=== PATIENT | male | born 1950 | race Hispanic/Latino ===

== ENCOUNTER → 2020-09-11 | Outpatient (CLI) | payer MEDICARE | END | disposition home or self-care (01) | LOC: RAH 11:00 | PROVIDERS: ATTEND Internal Medicine Gastroenterology | DX: R13.13 Dysphagia, pharyngeal phase (principal); R63.3 Feeding difficulties | CPT/HCPCS: 74230; 92611 ==

== ENCOUNTER → 2020-11-05 | Outpatient (CLI) | payer MEDICARE | END | disposition home or self-care (01) | LOC: RAH 10:23 | PROVIDERS: ATTEND Internal Medicine Gastroenterology | DX: R63.3 Feeding difficulties (principal); R13.12 Dysphagia, oropharyngeal phase | CPT/HCPCS: 74230; 92611 ==

== ENCOUNTER → 2022-10-30 | Outpatient (CLI) | payer MEDICARE ==
[2022-10-30 16:09] LABS: BASOPHILS % (AUTO) 0.4 % (0.0-5.0); EOSINOPHILS % (AUTO) 2.5 % (0.0-8.0); LYMPHOCYTES % (AUTO) 45.4 % (21.0-51.0); MEAN CORPUSCULAR HEMOGLOBIN 34.5 pg (27.0-33.0); MEAN CORPUSCULAR HGB CONC 34.1 g/dL (32.0-36.0); MONOCYTES % (AUTO) 14.5 % (3.0-13.0); NEUTROPHILS % (AUTO) 37.1 % (40.0-77.0); PLATELET COUNT (AUTO) 99 K/uL (130-400); RED BLOOD CELL COUNT(AUTO) 3.86 MIL/uL (4.50-6.20); RED CELL DISTRIBUTION WIDTH 12.2 % (11.0-15.5); WHITE BLOOD COUNT (AUTO) 6.7 K/uL (4.8-10.8)
[2022-10-30 16:26] LABS: INR 1.07 (0.85-1.15); PROTHROMBIN TIME 11.6 SEC (9.6-11.6)
[2022-10-30 16:27] LABS: PARTIAL THROMBOPLASTIN TIME 31.8 SEC (26.3-35.5)
[2022-10-30 16:32] LABS: ALBUMIN 3.7 g/dL (3.5-5.0); CREATININE 0.7 mg/dL (0.5-1.5); POTASSIUM 4.5 mmol/L (3.5-5.1); TOTAL PROTEIN, SERUM 8.1 g/dL (6.0-8.3)
== END | disposition home or self-care (01) ==
LOC: RAH 15:00
PROVIDERS: ATTEND Internal Medicine
DX: K70.30 Alcoholic cirrhosis of liver without ascites (principal)
CPT/HCPCS: 36415; 80053; 82105; 85025; 85610; 85730

== ENCOUNTER → 2022-11-03 | Outpatient (CLI) | payer MEDICARE | END | disposition home or self-care (01) | LOC: RAH 09:02 | PROVIDERS: ATTEND Internal Medicine Gastroenterology | DX: K70.30 Alcoholic cirrhosis of liver without ascites (principal); R77.2 Abnormality of alphafetoprotein | CPT/HCPCS: 74170 ==

== ENCOUNTER 2023-02-13 00:46 | Observation (INO) | payer MEDICARE ==
[~2023-02-13] VITALS: Ht 170.2 cm; Wt 67.5 kg
[2023-02-13] MEDS ORDERED: THIA500T3 PO (00:54)
[2023-02-13] MEDS ORDERED: OMEP20CA12 PO (00:55)
[2023-02-13] MEDS ORDERED: LORA-192 PO (00:56)
[2023-02-13] MEDS ORDERED: RIFA550T PO (00:57)
[2023-02-13] MEDS ORDERED: FOLI0.8T22 PO (00:57)
[2023-02-13] MEDS ORDERED: LACT10SO95 PO (00:58)
[2023-02-13] MEDS ORDERED: METO25TA6 PO (00:58)
[2023-02-13] MEDS ORDERED: LORA2DIS5 IJ (01:00)
[2023-02-13] MEDS ORDERED: CLOT15CR23 TP (01:01)
[2023-02-13 01:19] LABS: BASOPHILS # (AUTO) 0.05 K/uL (0.00-0.20); BASOPHILS % (AUTO) 0.6 % (0.0-5.0); EOSINOPHILS # (AUTO) 0.24 K/uL (0.00-0.70); EOSINOPHILS % (AUTO) 3.1 % (0.0-8.0); HEMATOCRIT 33.7 % (42-54); IMMATURE GRANULOCYTE ABSOLUTE 0.01 K/uL (0-1); LYMPHOCYTES # (AUTO) 2.4 K/uL (1.0-4.8); LYMPHOCYTES % (AUTO) 30.8 % (21.0-51.0); MEAN CORPUSCULAR HEMOGLOBIN 34.1 pg (27.0-33.0); MEAN CORPUSCULAR HGB CONC 34.7 g/dL (32.0-36.0); MEAN CORPUSCULAR VOLUME 98.3 fL (79-99); MONOCYTES # (AUTO) 1.1 K/uL (0.1-1.0); MONOCYTES % (AUTO) 13.9 % (3.0-13.0); NEUTROPHILS % (AUTO) 51.5 % (40.0-77.0); PLATELET COUNT (AUTO) 154 K/uL (130-400); RED BLOOD CELL COUNT(AUTO) 3.43 MIL/uL (4.50-6.20); RED CELL DISTRIBUTION WIDTH 13.1 % (11.0-15.5); WHITE BLOOD COUNT (AUTO) 7.8 K/uL (4.8-10.8)
[2023-02-13 01:44] LABS: B-TYPE NATRIURETIC PEPTIDE 25 pg/mL (0-100)
[2023-02-13 01:56] LABS: CREATININE 0.8 mg/dL (0.5-1.5); POTASSIUM 3.8 mmol/L (3.5-5.1)
[2023-02-13 02:01] LABS: ALBUMIN 2.8 g/dL (3.5-5.0); BILIRUBIN,TOTAL 0.6 mg/dL (0.2-1.0); TOTAL PROTEIN, SERUM 7.8 g/dL (6.0-8.3)
[2023-02-13] MEDS ORDERED: OCTYL 2-CYANOACRYLATE 1 EACH TP ONE (04:34)
[2023-02-13] MEDS ORDERED: 0.9%NACL 1000ML 1,000 ML IV ONE (05:00)
[2023-02-13] MEDS ORDERED: OCTYL 2-CYANOACRYLATE 1 EACH TP SCH (05:00)
[2023-02-13] MEDS ORDERED: ZOLPIDEM TARTRATE 5 MG TAB PO PRN (06:30)
[2023-02-13] MEDS ORDERED: ONDANSETRON 4MG INJ IV PRN (06:30)
[2023-02-13] MEDS ORDERED: HYDROMORPHONE 0.5 MG SYG (0.5MG/0.5ML) IVP PRN (06:30)
[2023-02-13] MEDS ORDERED: DiphenhydrAMINE HCL 50 MG/ML VIAL IV PRN (06:30)
[2023-02-13] MEDS ORDERED: HYDROCODONE/ACETAMINOPHEN 7.5/325 MG TAB PO PRN (06:30)
[2023-02-13] MEDS ORDERED: ALBUTEROL 0.083% 2.5 MG/3 ML INH IH PRN (06:30)
[2023-02-13] MEDS ORDERED: ACETAMINOPHEN 325 MG TAB PO PRN ×3 (06:30)
[2023-02-13] MEDS ORDERED: LACTULOSE 20 GM/30 ML UDCUP PO PRN (06:30)
[2023-02-13] MEDS ORDERED: NITROGLYCERIN 0.4 MG SL TAB SL PRN (06:30)
[2023-02-13] MEDS ORDERED: HYDRALAZINE 20MG/ML VIAL IV PRN (06:30)
[2023-02-13] MEDS ORDERED: MAG/ALUM/SIMETH 30 ML UDCUP PO PRN (06:30)
[2023-02-13] MEDS ORDERED: GUAIFENESIN-DM 200/20 MG 10 ML PO PRN (06:30)
[2023-02-13] MEDS ORDERED: KETOROLAC 15MG/ML VIAL (15MG/ML) IV PRN (06:30)
[2023-02-13] MEDS: 0.9%NACL 1000ML 1,000 ML IV SCH ×2 (07:16→15:40)
[2023-02-13] MEDS: FAMOTIDINE 20MG VIAL IV SCH ×2 (09:00→21:06)
[2023-02-13] MEDS: HEPARIN 5,000 UNIT VIAL SQ SCH ×3 (09:00→21:37)
[2023-02-13] MEDS ORDERED: FAMOTIDINE 20MG VIAL IV SCH (09:00)
[2023-02-13 09:13] VITALS: BP 142/79; PULSE 96; RESP 18
[2023-02-13] MEDS ORDERED: CLOTRIMAZOLE 30 GM CREAM.GM. TP SCH (12:00)
[2023-02-13] MEDS ORDERED: LORAZEPAM 2 MG/ML 1 ML VIAL IVP PRN (12:00)
[2023-02-13 15:55] VITALS: BP 128/75; PULSE 99; RESP 18
[2023-02-13 19:04] VITALS: O2SAT 99
[2023-02-13 19:24] VITALS: BP_SYST 112; BP_SYST 113; BP_SYST 123; BP_DIAS 62; BP_DIAS 66; PULSE 75; RESP 18
[2023-02-13] MEDS ORDERED: SODIUM CHLORIDE 1,000 MG TAB PO SCH (21:00)
[2023-02-13] MEDS ORDERED: Vitamin B Complex/Vit C/Folic Acid PO SCH (21:00)
[2023-02-13] MEDS: LORAZEPAM 1 MG TABLET PO PRN (21:05)
[2023-02-13] MEDS: LACTULOSE 20 GM/30 ML UDCUP PO SCH (21:05)
[2023-02-13] MEDS: METOPROLOL TARTRATE 25 MG TAB PO SCH (21:06)
[2023-02-13] MEDS: RIFAXIMIN 550 MG TABLET PO SCH (21:06)
[2023-02-13 22:27] VITALS: BP_SYST 106; BP_SYST 121; BP_SYST 131; BP_DIAS 63; BP_DIAS 66; BP_DIAS 71; PULSE 76; RESP 18
[2023-02-14 04:08] VITALS: BP_SYST 115; BP_SYST 126; BP_SYST 135; BP_DIAS 68; BP_DIAS 70; BP_DIAS 82; PULSE 80; RESP 19
[2023-02-14 04:39] LABS: CREATININE 0.7 mg/dL (0.5-1.5); HEMATOCRIT 31.1 % (42-54); MAGNESIUM 1.4 mg/dL (1.80-2.40); MEAN CORPUSCULAR HEMOGLOBIN 33.3 pg (27.0-33.0); MEAN CORPUSCULAR HGB CONC 33.1 g/dL (32.0-36.0); MEAN CORPUSCULAR VOLUME 100.6 fL (79-99); RED BLOOD CELL COUNT(AUTO) 3.09 MIL/uL (4.50-6.20); WHITE BLOOD COUNT (AUTO) 6.8 K/uL (4.8-10.8)
[2023-02-14 08:00] VITALS: BP 124/68; PULSE 84; RESP 18; O2SAT 97
[2023-02-14] MEDS: HEPARIN 5,000 UNIT VIAL SQ SCH ×2 (09:00→13:31)
[2023-02-14] MEDS: FAMOTIDINE 20MG VIAL IV SCH (09:00)
[2023-02-14] MEDS ORDERED: THIAMINE HCL 100 MG TABLET PO SCH (09:00)
[2023-02-14] MEDS ORDERED: MAGNESIUM 4GM PREMIX 100ML 100 ML IV PRN (11:00)
[2023-02-14] MEDS ORDERED: MAGNESIUM 2GM PREMIX 50ML 50 ML IV SCH (11:30)
[2023-02-14] MEDS ORDERED: DIATR MEGLU/DIATRIZOATE SODIUM 30 ML BOTTLE ONE (11:44)
[2023-02-14 12:00] VITALS: BP 119/68; PULSE 77; RESP 18
[2023-02-14] MEDS: LACTULOSE 20 GM/30 ML UDCUP PO SCH (13:30)
[2023-02-14] MEDS: RIFAXIMIN 550 MG TABLET PO SCH (13:32)
[2023-02-14] MEDS: METOPROLOL TARTRATE 25 MG TAB PO SCH (13:33)
[2023-02-14] MEDS: LORAZEPAM 1 MG TABLET PO PRN (13:33)
== END 2023-02-14 17:10 ==
LOC: EDH 00:46 → EDHIP 06:29 → 4BH 08:25
PROVIDERS: ADMIT Internal Medicine Critical Care Medicine; ATTEND Internal Medicine Critical Care Medicine
DX: E87.1 Hypo-osmolality and hyponatremia (principal); S61.419A Laceration without foreign body of unspecified hand, initial encounter; S10.93XA Contusion of unspecified part of neck, initial encounter; S01.81XA Laceration without foreign body of other part of head, initial encounter; R55 Syncope and collapse; I10 Essential (primary) hypertension; I48.91 Unspecified atrial fibrillation; K70.30 Alcoholic cirrhosis of liver without ascites; R13.10 Dysphagia, unspecified; D64.9 Anemia, unspecified; K21.9 Gastro-esophageal reflux disease without esophagitis; G25.81 Restless legs syndrome; G40.909 Epilepsy, unspecified, not intractable, without status epilepticus; W18.30XA Fall on same level, unspecified, initial encounter; Y93.89 Activity, other specified; Y92.89 Other specified places as the place of occurrence of the external cause; Y99.2 Volunteer activity
CPT/HCPCS: 96372 ×2; 96361 ×2; 96375; 99285; 84443; 84484; 80053; 83880; 82140; 85025; 36415 ×2; 71045; 73090; 73590; 70450; 72125; 93306; 93880; 93005; 96365; 96366; 83735; 80048; 85027; 83930; 82533; 74018 ×2; 97161; 97039 ×2; G0378 ×35; J3490 ×2; J1644 ×3; J3475; Q9963